=== PATIENT | male | born 1975 | race Caucasian/White ===

== ENCOUNTER 2021-07-05 17:06 | Inpatient (IN) ==
[2021-07-05] MEDS ORDERED: NS 0.9% 1000 ml BAG 1,000 ML IV ONE ×2 (17:53→20:21)
[2021-07-05 18:34] LABS: Hematocrit 39 % (42-52); Hemoglobin 13.2 g/dL (14.0-18.0); Mean Corpuscular HGB Conc 34 g/dL (31-36); Mean Corpuscular Hemoglobin 32 pg (27-31); Mean Corpuscular Volume 93 fL (80-94); Mean Platelet Volume 7.5 fL (7.4-10.4); Platelet Count 221 10^3/uL (150-450); Red Blood Count 4.13 10^6 /uL (4.18-5.48); Red Cell Distribution Width 14 % (10-15); White Blood Count 15.7 10^3/uL (3.5-10.8)
[2021-07-05 18:56] LABS: High Sens Troponin Baseline 7 pg/mL (<20)
[2021-07-05 19:12] LABS: ABS Lymphocytes 0.8 10^3/ul (1.0-4.8); ABS Monocytes 1.3 10^3/ul (0-0.8); ABS Neutrophils 13.6 10^3/ul (1.5-7.7); Eosinophil % 0.1 %; Lymphocyte % 4.8 %
[2021-07-05 19:47] LABS: ALT 68 U/L (7-52); AST 56 U/L (13-39); Albumin/Globulin Ratio 1.7 (1-3); Alkaline Phosphatase 56 U/L (35-149); Anion Gap 12 mmol/L (2-11); Blood Urea Nitrogen 17 mg/dL (6-24); CO2 Carbon Dioxide 21 mmol/L (22-32); Calcium 8.5 mg/dL (8.6-10.3); Chloride 102 mmol/L (101-111); Globulin 2.3 g/dL (2-4); Glucose 65 mg/dL (70-100); Magnesium 1.4 mg/dL (1.9-2.7); Potassium 3.8 mmol/L (3.5-5.0); Sodium 135 mmol/L (135-145); Total Protein 6.3 g/dL (6.4-8.9); eGFR CKD-EPI 67.6 (>60)
[2021-07-05 19:58] LABS: High Sensitivity Troponin 1 Hr 7 pg/mL (<20)
[2021-07-05] MEDS ORDERED: Magnesium Sulfate 2 gm BAG 2 GM/50 ML BAG IVPB ONE ×2 (20:20→20:22)
[2021-07-05] MEDS ORDERED: Lactated Ringers 1000 ml BAG 1,000 ML IV ONE (23:06)
[2021-07-05 23:42] LABS: Alcohol, S < 13 mg/dL (<13)
[2021-07-06 01:08] LABS: Venous Bicarbonate HCO3 24.8 mmol/L (24-28)
[2021-07-06] MEDS ORDERED: Lorazepam PYXIS KEY PRN ×3 (01:55→04:50)
[2021-07-06] MEDS ORDERED: LORazepam 2 mg VIAL 1 ml IV PUSH ONE ×2 (01:55→03:33)
[2021-07-06 02:05] LABS: Calcium 7.9 mg/dL (8.6-10.3); Magnesium 1.9 mg/dL (1.9-2.7); Potassium 3.8 mmol/L (3.5-5.0); eGFR CKD-EPI 87.1 (>60)
[2021-07-06] MEDS ORDERED: CALCIUM GLUCONATE 1GM/50ML NS 1 GM/50 ML BAG IV ONE ×2 (02:15→02:56)
[2021-07-06] MEDS ORDERED: Cefepime 1 GM in Dextrose 1 GM/50 ML BAG IV ONE (03:05)
[2021-07-06] MEDS ORDERED: Iohexol 350 (CONTRAST) 500 ML MDV IV ONE (03:11)
[2021-07-06] MEDS ORDERED: Vancomycin 1,250 MG in NS 0.9% 250 ml 250 ML IVPB ONE (03:30)
[2021-07-06 03:32] LABS: C Reactive Protein 61.61 mg/L (<8.01)
[2021-07-06] MEDS ORDERED: Acetaminophen IV 1 GM/100ML 100 ML IV ONE (04:00)
[2021-07-06 04:07] LABS: Urine Appearance Clear; Urine Bilirubin Negative (Negative); Urine Blood 1+ (Negative); Urine Color Yellow; Urine Glucose Negative (Negative); Urine Ketones 1+ (Negative); Urine Nitrite Negative (Negative); Urine Protein Negative (Negative); Urine Specific Gravity 1.012 (1.002-1.030); Urine Urobilinogen Positive (Negative)
[2021-07-06 04:12] LABS: Urine Bacteria Absent (Absent); Urine Red Blood Cell Trace(0-2/hpf) (Absent); Urine White Blood Cell Trace(0-5/hpf) (Absent)
[2021-07-06 04:25] LABS: Urine Benzodiazepine Screen None Detected (None Detect); Urine Cannabinoids Screen Presumptive Positive (None Detect); Urine Opiates Screen None Detected (None Detect)
[2021-07-06] MEDS ORDERED: LORazepam 2 mg VIAL 1 ml IV PUSH PRN (04:50)
[2021-07-06] MEDS ORDERED: Lactated Ringers 1000 ml BAG 1,000 ML IV SCH (05:00)
[2021-07-06] MEDS ORDERED: Vancomycin per Pharmacy 1 EA NOTE FOLLOW UP SCH (05:00)
[2021-07-06 05:18] LABS: PCO2 Arterial 28 mmHg (35-45); PO2 Arterial 144 mmHg (80-100)
[2021-07-06] MEDS ORDERED: cefTRIAXone 2 GM ADDV.VIAL 2 GM in NS 0.9% 100 ml BAG 100 ML IV SCH (05:30)
[2021-07-06] MEDS ORDERED: metroNIDAZOLE IV 500 MG/100ML 500 MG/100 ML BAG IVPB SCH (06:00)
[2021-07-06] MEDS ORDERED: NS 0.9% IVPB SCH (06:00)
[2021-07-06] MEDS ORDERED: ACYCLOVIR IVPB SCH (06:00)
[2021-07-06] MEDS ORDERED: Vancomycin 1,500 MG in NS 0.9% 250 ml 250 ML IVPB ONE (06:00)
[2021-07-06 09:36] LABS: Hematocrit 33 % (42-52); Hemoglobin 11.3 g/dL (14.0-18.0); Mean Corpuscular HGB Conc 34 g/dL (31-36); Mean Corpuscular Hemoglobin 32 pg (27-31); Mean Corpuscular Volume 94 fL (80-94); Red Blood Count 3.55 10^6 /uL (4.18-5.48); Red Cell Distribution Width 14 % (10-15); White Blood Count 12.1 10^3/uL (3.5-10.8)
[2021-07-06 10:06] LABS: INR 1.38 (0.86-1.15)
[2021-07-06 10:09] LABS: CO2 Carbon Dioxide 23 mmol/L (22-32); Calcium 7.5 mg/dL (8.6-10.3); Chloride 107 mmol/L (101-111); Sodium 135 mmol/L (135-145)
[2021-07-06 10:11] LABS: Blood Urea Nitrogen 9 mg/dL (6-24); Glucose 86 mg/dL (70-100); eGFR CKD-EPI 106.4 (>60)
[2021-07-06 10:42] LABS: ABS Lymphocytes 1.9 10^3/ul (1.0-4.8); ABS Monocytes 0.5 10^3/ul (0-0.8); ABS Neutrophils 9.7 10^3/ul (1.5-7.7); Eosinophil % 0.3 %; Lymphocyte % 15.5 %; Nucleated Red Blood Cells % 0.1; Platelet Count Platelets clumped. 10^3/uL (150-450)
[2021-07-06 11:01] LABS: Anion Gap 5 mmol/L (2-11)
[2021-07-06] MEDS ORDERED: Vancomycin 1000 MG in NS 0.9% 250 ML IVPB SCH (12:30)
[2021-07-06] MEDS: Thiamine 100 MG/ML 2 ml VIAL 100 MG in NS 0.9% 50 ML 50 ML IV SCH (12:36)
[2021-07-06 13:33] LABS: Phosphorus 2.9 mg/dL (2.5-5.0); Potassium Redraw 3.6 mmol/L (3.5-5.0)
[2021-07-06] MEDS ORDERED: Pantoprazole VIAL 40 MG VIAL IV SCH (14:00)
[2021-07-06] MEDS: Enoxaparin 40 MG/0.4 ML SYR SUBCUT SCH (14:06)
[2021-07-06] MEDS: KCL 20 MEQ/100 ML IVPREMIX 20 MEQ/100 ML BAG IV SCH ×2 (14:55→17:00)
[2021-07-06] MEDS: Acetaminophen IV 1 GM/100ML 100 ML IV PRN (20:07)
[2021-07-07 06:14] LABS: ABS Eosinophils 0.1 10^3/ul (0-0.6); ABS Lymphocytes 1.6 10^3/ul (1.0-4.8); ABS Monocytes 0.4 10^3/ul (0-0.8); ABS Neutrophils 6.5 10^3/ul (1.5-7.7); Eosinophil % 0.8 %; Hematocrit 38 % (42-52); Hemoglobin 12.9 g/dL (14.0-18.0); Lymphocyte % 18.9 %; Mean Corpuscular HGB Conc 35 g/dL (31-36); Mean Corpuscular Hemoglobin 33 pg (27-31); Mean Corpuscular Volume 94 fL (80-94); Mean Platelet Volume 7.9 fL (7.4-10.4); Nucleated Red Blood Cells % 0.1; Platelet Count 213 10^3/uL (150-450); Red Blood Count 3.98 10^6 /uL (4.18-5.48); Red Cell Distribution Width 14 % (10-15); White Blood Count 8.6 10^3/uL (3.5-10.8)
[2021-07-07 06:39] LABS: Calcium 8.2 mg/dL (8.6-10.3); Potassium 4.2 mmol/L (3.5-5.0); eGFR CKD-EPI 98.1 (>60)
[2021-07-07] MEDS: Acetaminophen IV 1 GM/100ML 100 ML IV PRN (07:43)
[2021-07-07] MEDS: cefTRIAXone 2 GM ADDV.VIAL 2 GM in NS 0.9% 100 ml BAG 100 ML IV SCH (09:59)
[2021-07-07] MEDS: Thiamine 100 MG/ML 2 ml VIAL 100 MG in NS 0.9% 50 ML 50 ML IV SCH (10:40)
[2021-07-07] MEDS ORDERED: Thiamine 100 MG/ML 2 ml VIAL (200 mg) IM ONE (11:53)
[2021-07-07] MEDS ORDERED: Vancomycin Trough Check NOTE FOLLOW UP ONE (12:00)
[2021-07-07] MEDS: Enoxaparin 40 MG/0.4 ML SYR SUBCUT SCH (12:30)
[2021-07-07] MEDS: Nicotine PATCH 21 MG/24 HR PATCH TRANSDERM SCH (12:30)
[2021-07-07] MEDS: oxyCODONE/Acetamin 5/325 mg TAB PO PRN ×2 (12:44→19:03)
[2021-07-07] MEDS ORDERED: COVID-19 VACCINE, MRNA(MODERNA)/PF 100 MCG/0.5 ML IM ONE (15:00)
[2021-07-08] MEDS: oxyCODONE/Acetamin 5/325 mg TAB PO PRN ×4 (01:28→21:19)
[2021-07-08 06:20] LABS: ABS Eosinophils 0.1 10^3/ul (0-0.6); ABS Lymphocytes 1.7 10^3/ul (1.0-4.8); ABS Monocytes 0.6 10^3/ul (0-0.8); ABS Neutrophils 4.9 10^3/ul (1.5-7.7); Eosinophil % 1.8 %; Hematocrit 37 % (42-52); Hemoglobin 12.4 g/dL (14.0-18.0); Mean Corpuscular HGB Conc 34 g/dL (31-36); Mean Corpuscular Hemoglobin 32 pg (27-31); Mean Corpuscular Volume 95 fL (80-94); Mean Platelet Volume 8.4 fL (7.4-10.4); Platelet Count 235 10^3/uL (150-450); Red Blood Count 3.89 10^6 /uL (4.18-5.48); Red Cell Distribution Width 14 % (10-15); White Blood Count 7.3 10^3/uL (3.5-10.8)
[2021-07-08 06:37] LABS: Potassium 3.8 mmol/L (3.5-5.0)
[2021-07-08 06:38] LABS: Calcium 8.6 mg/dL (8.6-10.3); Magnesium 1.9 mg/dL (1.9-2.7); eGFR CKD-EPI 99.3 (>60)
[2021-07-08] MEDS: Multivitamins/Minerals TAB PO SCH (08:29)
[2021-07-08] MEDS: cefTRIAXone 2 GM ADDV.VIAL 2 GM in NS 0.9% 100 ml BAG 100 ML IV SCH (08:30)
[2021-07-08] MEDS: Nicotine PATCH 21 MG/24 HR PATCH TRANSDERM SCH (08:31)
[2021-07-08] MEDS: Enoxaparin 40 MG/0.4 ML SYR SUBCUT SCH (13:05)
[2021-07-09] MEDS: oxyCODONE/Acetamin 5/325 mg TAB PO PRN ×3 (05:27→20:25)
[2021-07-09 06:25] LABS: ABS Eosinophils 0.1 10^3/ul (0-0.6); ABS Lymphocytes 1.6 10^3/ul (1.0-4.8); ABS Monocytes 0.5 10^3/ul (0-0.8); ABS Neutrophils 3.4 10^3/ul (1.5-7.7); Eosinophil % 1.8 %; Hematocrit 41 % (42-52); Hemoglobin 14.2 g/dL (14.0-18.0); Lymphocyte % 28.4 %; Mean Corpuscular HGB Conc 34 g/dL (31-36); Mean Corpuscular Hemoglobin 32 pg (27-31); Mean Corpuscular Volume 95 fL (80-94); Mean Platelet Volume 8.2 fL (7.4-10.4); Platelet Count 285 10^3/uL (150-450); Red Blood Count 4.38 10^6 /uL (4.18-5.48); Red Cell Distribution Width 14 % (10-15); White Blood Count 5.6 10^3/uL (3.5-10.8)
[2021-07-09 06:38] LABS: Calcium 8.8 mg/dL (8.6-10.3); Magnesium 1.6 mg/dL (1.9-2.7); Potassium 4.1 mmol/L (3.5-5.0); eGFR CKD-EPI 98.1 (>60)
[2021-07-09] MEDS: Multivitamins/Minerals TAB PO SCH (08:31)
[2021-07-09] MEDS: cefTRIAXone 2 GM ADDV.VIAL 2 GM in NS 0.9% 100 ml BAG 100 ML IV SCH (08:32)
[2021-07-09] MEDS: Nicotine PATCH 21 MG/24 HR PATCH TRANSDERM SCH (08:32)
[2021-07-09] MEDS: Enoxaparin 40 MG/0.4 ML SYR SUBCUT SCH (13:45)
[2021-07-09] MEDS ORDERED: Nicotine PATCH 21 MG/24 HR PATCH TRANSDERM ONE (14:00)
[2021-07-10] MEDS: oxyCODONE/Acetamin 5/325 mg TAB PO PRN ×2 (03:00→08:59)
[2021-07-10 05:49] LABS: ABS Basophils 0.1 10^3/ul (0-0.2); ABS Eosinophils 0.1 10^3/ul (0-0.6); ABS Lymphocytes 1.9 10^3/ul (1.0-4.8); ABS Monocytes 0.8 10^3/ul (0-0.8); ABS Neutrophils 2.9 10^3/ul (1.5-7.7); Eosinophil % 1.2 %; Hematocrit 41 % (42-52); Hemoglobin 14.1 g/dL (14.0-18.0); Lymphocyte % 33.8 %; Mean Corpuscular HGB Conc 34 g/dL (31-36); Mean Corpuscular Hemoglobin 32 pg (27-31); Mean Corpuscular Volume 94 fL (80-94); Mean Platelet Volume 7.6 fL (7.4-10.4); Nucleated Red Blood Cells % 0.1; Platelet Count 292 10^3/uL (150-450); Red Blood Count 4.36 10^6 /uL (4.18-5.48); Red Cell Distribution Width 14 % (10-15); White Blood Count 5.7 10^3/uL (3.5-10.8)
[2021-07-10 06:28] LABS: Calcium 8.6 mg/dL (8.6-10.3); Magnesium 1.9 mg/dL (1.9-2.7); Potassium 4.1 mmol/L (3.5-5.0); eGFR CKD-EPI 95.7 (>60)
[2021-07-10 07:37] VITALS: BP 104/63
[2021-07-10] MEDS: Multivitamins/Minerals TAB PO SCH (07:49)
[2021-07-10] MEDS: Nicotine PATCH 21 MG/24 HR PATCH TRANSDERM SCH (07:49)
[2021-07-10] MEDS: cefTRIAXone 2 GM ADDV.VIAL 2 GM in NS 0.9% 100 ml BAG 100 ML IV SCH (08:59)
== END 2021-07-10 12:54 | disposition home or self-care (01) | DRG 871 ==
LOC: ED 17:06 → ICU 07-06 05:47 → SUATTDRO 07-06 05:47 → ICU 07-06 06:40 → MEDTELE 07-06 18:05 → SSU 07-10 03:13
PROVIDERS: ADMIT Internal Medicine; ATTEND Internal Medicine